=== PATIENT | male | born 1970 ===

== ENCOUNTER 2020-06-26 05:50 | Day surgery (SDC) | payer OTHER ==
[~2020-06-26 05:50] MED LIST: LOSARTAN-HCTZ1 EACH PO; PRAVASTATIN SOD40 MG PO
== END 2020-06-26 11:10 | disposition home or self-care (01) ==
LOC: CIR.AMB 05:50
PROVIDERS: ATTEND Surgery
DX: K43.0 Incisional hernia with obstruction, without gangrene (principal); Z20.822 Contact with and (suspected) exposure to COVID-19